=== PATIENT | male | born 1950 | race Two or more races ===

== ENCOUNTER → 2017-08-26 | Day surgery (SDC) | payer OTHER ==
[~2017-08-26] MED LIST: HYZAAR 100-121 UDTAB
== END | disposition home or self-care (01) ==
LOC: ADM 08-15 12:45 → AMB-ENDOS 07:15
DX: D12.5 Benign neoplasm of sigmoid colon (principal); K64.8 Other hemorrhoids; K63.89 Other specified diseases of intestine

== ENCOUNTER → 2018-07-13 | Outpatient (CLI) | payer OTHER | END | disposition home or self-care (01) | LOC: RAD 501 13:38 | DX: M47.12 Other spondylosis with myelopathy, cervical region (principal) ==